=== PATIENT | male | born 1990 | race Caucasian/White ===

== ENCOUNTER 2017-02-26 13:50 | Emergency (ER) | payer BC ==
--- NOTE | 2017-02-26 14:34 | Emergency Department Record ---
History of Present Illness - General Chief complaint: ENT Stated complaint: WHITE SPOTS TONGUE Time Seen by Provider: 02/26/17 14:32 Source: Patient Mode of Arrival: Ambulatory Limitations: No limitations - History of Present Illness Initial comments: 26 yo male presents to ED for evaluation of a coating to the tongue. Patient reports a history of similar symptoms x 6 months, has taken Diflucan for his symptoms previously that did not improve his symptoms. Patient presents to ED as his tongue has now become more painful in addition to the white-coating of the tongue, denies fevers, chills, sore throat, or recent illness. MD complaint: Other (tongue) Onset/Timin -: Days(s) Location: Tongue Severity scale (1-10): 2 Quality: Sharp Consistency: Intermittent Improves with: None Worsens with: None - Related Data Home Medications Medication Instructions Recorded Confirmed Last Taken Omeprazole [Prilosec] 20 mg PO DAILY 02/26/17 02/26/17 02/25/17 Previous Rx's Medication Instructions Recorded Nystatin 5 ml PO BID #125 ml 02/26/17 Allergies Allergy/AdvReac Type Severity Reaction Status Date / Time No Known Drug Intolerances Allergy Unknown PT UNSURE Unverified 02/26/17 14:23 OF REACTION Allergies: Allergy Unknown PT UNSURE Uncoded 02/26/17 14:23 OF REACTION Travel Screening - Travel/Exposure Within Last 30 Days Have you traveled within the last 30 days?: Yes Location Detail:: [facility] - Travel/Exposure Within Last Year Have you traveled outside the [place] in the last year?: Yes Location Detail:: [facility] - Additonal Travel Details Have you been exposed to anyone with a communicable illness?: No - Travel Symptoms Symptom Screening: None Review of Systems Constitutional: Denies: Chills, Fever, Malaise, Night sweats Eyes: Denies: Eye discharge, Eye pain ENT: Denies: Congestion, Ear pain, Epistaxis Respiratory: Denies: Cough, Dyspnea Cardiovascular: Denies: Chest pain, Dyspnea on exertion Endocrine: Denies: Fatigue, Heat or cold intolerance Gastrointestinal: Denies: Abdominal pain, Vomiting Genitourinary: Denies: Incontinence, Retention Musculoskeletal: Denies: Arthralgia, Back pain, Gout, Joint swelling Skin: Denies: Bruising, Change in color Neurological: Denies: Abnormal gait, Confusion, Headache, Seizure Psychiatric: Denies: Anxiety Hematological/Lymphatic: Denies: Anemia, Blood Clots Past Medical History - SOCIAL HISTORY Smoking Status: Never smoker Alcohol Use: Occasional Drug Use: None - RESPIRATORY Hx Respiratory Disorders: No - CARDIOVASCULAR Hx Cardio Disorders: No - NEURO Hx Neuro Disorders: No - GI Hx GI Disorders: Yes Hx Crohn's Disease: Yes - Hx Genitourinary Disorders: No - ENDOCRINE Hx Endocrine Disorders: No - MUSCULOSKELETAL Hx Musculoskeletal Disorders: Yes Comment:: not diagnosed - PSYCH Hx Psych Problems: No - HEMATOLOGY/ONCOLOGY Hx Hematology/Oncology Disorders: No Family Medical History Any Significant Family History?: No Physical Exam - General General Appearance: Alert, Oriented x3, Cooperative, No acute distress Limitations: No limitations - Head Head exam: Atraumatic, Normocephalic, Normal inspection Head exam detail: negative: Abrasion, Contusion, Elkins's sign, General tenderness, Hematoma, Laceration - Eye Eye exam: Normal appearance. negative: Conjunctival injection, Periorbital swelling, Periorbital tenderness, Scleral icterus - ENT Ear exam: negative: Auricular hematoma, Auricular trauma Nasal Exam: negative: Active bleeding, Discharge, Dried blood, Foreign body Mouth exam: Other (white coating is present to the tongue c/w thrush). negative : Drooling, Laceration, Tongue elevation - Neck Neck exam: Normal inspection. negative: Meningismus, Tenderness - Respiratory Respiratory exam: Normal lung sounds bilaterally. negative: Rales, Respiratory distress, Rhonchi, Stridor - Cardiovascular Cardiovascular Exam: Regular rate, Normal rhythm, Normal heart sounds - GI/Abdominal GI/Abdominal exam: Soft. negative: Rebound, Rigid, Tenderness - Rectal Rectal exam: Deferred - exam: Deferred - Extremities Extremities exam: Normal inspection. negative: Calf tenderness, Pedal edema, Tenderness - Back Back exam: Denies: CVA tenderness (R), CVA tenderness (L) - Neurological Neurological exam: Alert, Normal gait, Oriented X3 - Psychiatric Psychiatric exam: Normal affect, Normal mood - Skin Skin exam: Normal color. negative: Abrasion Type of lesion: negative: abrasion Course Vital Signs 02/26/17 14:09 Temperature 97.6 F Pulse Rate [ 109 H Pulse Ox Probe] Respiratory 14 Rate Blood Pressure 139/97 [Right Arm] - Reevaluation(s) Reevaluation #1: 02/26/17 14:38 History and examination appear c/w thrush, will treat with Nystatin swish and swallow for his symptoms with instruction to follow-up with his PCP in 3-5 days as directed. Disposition Disposition: Discharge Clinical Impression: Thrush Disposition: Home, Self-Care Condition: (2) Stable Instructions: Oral Candidiasis (ED) Additional Instructions: Return to ED if your symptoms worsen or if you have any concerns. Nystatin as directed. Follow-up with your family doctor in 3-5 days as directed. Prescriptions: Nystatin 5 ml PO BID #125 ml Forms: Patient Portal Access Time of Disposition: 14:34 Quality - Quality Measures Quality Measures: N/A - Blood Pressure Screening Does Patient Have Any of the Following: No Blood Pressure Classification: Hypertensive Reading Systolic Measurement: 139 Diastolic Measurement: 97 Screening for High Blood Pressure: < First Hypertensive BP, F/U Documented > [ [id number]] First Hypertensive Follow-up Interventions: Referral to alternative/primary care provider.
== END 2017-02-26 14:35 | disposition home or self-care (01) ==
LOC: ER 13:50
DX: B37.0 Candidal stomatitis (principal)
CPT/HCPCS: 99282